=== PATIENT | female | born 1985 | race Caucasian/White ===

== ENCOUNTER 2016-04-01 08:03 | Emergency (ER) | payer OTHER ==
[~2016-04-01] VITALS: Ht 162.6 cm; Wt 65.8 kg
[~2016-04-01 08:03] MED LIST: CLIN300C86 PO; HYDR-2666 PO; PROAIR HFA8.5 GM INH
[2016-04-01 08:11] VITALS: BP 112/67
--- NOTE | 2016-04-01 08:20 | PHYS DOC ---
Past Medical History Past Medical History: No Pertinent History, Asthma Past Surgical History: No Surgical History Alcohol Use: None Drug Use: None Adult General Chief Complaint Chief Complaint: FLU SYMPTOM HPI HPI Patient is a 30 year old female who presents with cough, fever, body aches. Patient reports symptoms began yesterday morning with chest congestion and cough. She has had fever at home up to 102F. Additional symptoms include general body aches, sore throat, b/l ear pain. She has taken Tylenol at home with insufficient relief. No other acute complaints. Of note, patient reports multiple other members of household have been ill. Review of Systems Review of Systems Constitutional: Fever Eyes: Denies change in visual acuity or eye pain HENT: Sore throat Respiratory: Cough. Denies shortness of breath Cardiovascular: Denies chest pain GI: Denies abdominal pain, nausea, vomiting, bloody stools or diarrhea : Denies dysuria or hematuria Musculoskeletal: General body aches Integument: Denies rash or skin lesions Neurologic: Denies headache, focal weakness or sensory changes Current Medications Current Medications Current Medications Medications (Trade) Dose Ordered Sig/Kenneth Start Time Stop Time Status Last Admin Dose Admin Naproxen (Naprosyn) 500 mg STK-MED ONCE 04/01/16 08:21 04/01/16 08:22 DC Oseltamivir Phosphate (Tamiflu) 75 mg 1X ONCE 04/01/16 09:00 04/01/16 09:01 DC 04/01/16 09:12 75 MG Allergies Allergies Allergies Coded Allergies Type Severity Reaction Last Updated Verified No Known Drug Allergies 01/19/16 No Physical Exam Physical Exam Constitutional: Well developed, well nourished, no acute distress, non-toxic appearance HENT: Normocephalic, atraumatic, bilateral external ears normal. Oropharynx with minimal erythema, no exudate. B/l ear canals and TMs clear Eyes: EOMI, conjunctiva normal, no discharge Neck: Normal range of motion, no stridor Cardiovascular: Heart rate normal, regular rhythm, no murmur Lungs & Thorax: Bilateral breath sounds clear to auscultation Abdomen: Bowel sounds normal, soft, non-distended, no TTP Skin: Warm, dry, no erythema, no rash Extremities: No obvious deformity, no edema Neurologic: Alert and oriented X 3, no gross deficits noted Current Patient Data Vital Signs Vital Signs Date Time Temp Pulse Resp B/P Pulse Ox O2 Delivery O2 Flow Rate FiO2 04/01/16 08:11 99.3 54 18 98 Room Air 99.3 Lab Values Laboratory Tests Test 04/01/16 08:10 Influenza Type A Antigen Positive (NEGATIVE) Influenza Type B Antigen Negative (NEGATIVE) EKG EKG [] Radiology/Procedures Radiology/Procedures CXR: IMPRESSION: No acute or focal process. No significant change Course & Med Decision Making Course & Med Decision Making Pertinent Labs and Imaging studies reviewed. (See chart for details) Patient is 30 year old female who presents with cough, fever, body aches. Suspect viral respiratory infection. Will check CXR, rapid influenza screen. Naproxen ordered for relief of symptoms. CXR results as above. Positive for influenza B. Dose of tamiflu ordered. Discussed results with patient. Will plan discharge with rx for naproxen and tamiflu. Given instructions for follow up, return precautions. Dragon Disclaimer Dragon Disclaimer This electronic medical record was generated, in whole or in part, using a voice recognition dictation system. Departure Departure Impression: Primary Impression: Influenza B Disposition: 01 HOME, SELF-CARE Condition: STABLE Referrals: ROMMEL ROBLES MD (PCP) Patient Instructions: Influenza, Adult Additional Instructions: Thank you for allowing us to provide care today in the Emergency Department. Take the provided medication as directed. Be sure to drink plenty of fluids while you are sick. Schedule a follow up appointment with your primary care doctor. Return promptly to the Emergency Department if you develop any new or concerning symptoms. Scripts Oseltamivir Phosphate (Tamiflu)75 Mg Capsule1 Cap PO BID #10 CAP Prov:MARIAMA MOULTON MD 04/01/16 Naproxen 375 Mg [id number] Mg PO BID PRN fever, body aches #20 Prov:MARIAMA MOULTON MD 04/01/16 MARIAMA MOULTON MD Apr 01, 2016 08:20
[2016-04-01] MEDS ORDERED: NAPROXEN 500 MG TABLET ONE (08:21)
[2016-04-01] MEDS ORDERED: NAPROXEN 500 MG TABLET PO ONE (08:30)
[2016-04-01 08:52] LABS: OBC FLU VALID
--- NOTE | 2016-04-01 08:59 | RAD ---
Indication cough and fever. PA and lateral views of the chest were obtained and are compared to an examination 03/25/2006. The heart and pulmonary vessels appear normal. The lungs are clear. There is no pleural fluid or pneumothorax. There has not been a significant change in the appearance of the chest compared to the previous exam. IMPRESSION: No acute or focal process. No significant change
[2016-04-01] MEDS ORDERED: OSELTAMIVIR 75 MG CAPSULE PO ONE (09:00)
[2016-04-01] MEDS ORDERED: NAPR375T3 PO (09:23)
[2016-04-01] MEDS ORDERED: OSEL75CA PO (09:23)
== END 2016-04-01 09:43 | disposition home or self-care (01) ==
LOC: ER 08:03
DX: J10.1 Influenza due to other identified influenza virus with other respiratory manifestations (principal); J45.909 Unspecified asthma, uncomplicated
CPT/HCPCS: 71020; 87804; 99285-25

== ENCOUNTER → 2017-12-03 | Outpatient (CLI) | payer OTHER ==
[~2017-12-03] MED LIST changes: +CLIN300C8 PO; -CLIN300C86 PO; -HYDR-2666 PO; +HYDR-2758 PO; +NAPR-695 PO; +OSEL75CA PO
--- NOTE | 2017-12-03 08:31 | RAD ---
Obstetrical ultrasound, 12/03/2017: HISTORY: , unsure of dates Transabdominal scans were obtained. The uterus contains a single gestational sac. The gestational sac contains a pole demonstrating a crown-rump length of 8-9 mm. This suggests a gestational age of 6 weeks and 6 days yielding a sonographic EDC of 07/23/2017. cardiac activity is evident with a heart rate of 141 bpm. There is no evidence of subchorionic hemorrhage. The ovaries were not clearly defined. A 2.4 cm hypoechoic structure in the left adnexa is likely an ovarian cyst. The adnexal regions are otherwise unremarkable. No free fluid is evident in the pelvis. IMPRESSION: 1. Single viable intrauterine fetus of approximately 7 weeks gestational age. 2. Small left ovarian cyst. Electronically signed by: Daniel Hsieh MD (12/03/2017 8:28 AM) [facility]
== END | disposition home or self-care (01) ==
LOC: US 07:36
PROVIDERS: ATTEND Family Medicine
DX: O34.81 Maternal care for other abnormalities of pelvic organs, first trimester (principal); Z3A.01 Less than 8 weeks gestation of pregnancy
CPT/HCPCS: 76801

== ENCOUNTER → 2018-01-22 | Outpatient (CLI) | payer OTHER ==
[~2018-01-22] MED LIST changes: -HYDR-2758 PO; +HYDR-2761 PO
--- NOTE | 2018-01-22 17:02 | RAD ---
Examination: Obstetric ultrasound less than 14 weeks HISTORY: History of vaginal bleeding Comparison: 12/03/2017 FINDINGS: The cervix measures 5.1 cm in length. Single living intrauterine identified with heart rate of 153 bpm. LMP is 10/16/2017. Clinical age 14 weeks and 0 days with estimated date of delivery 07/23/2018. Ultrasound age is 14 weeks and 4 days with date of delivery by ultrasound 07/19/2018. Cephalic index 74.3 Head circumference to abdominal circumference ratio 1.2. Femur length to biparietal diameter ratio 57.9. Femur length to head circumference 15.1 Femur length to abdominal circumference 19.2 Biparietal diameter measures 2.6 cm corresponding to 14 weeks and 5 days. Head circumference measures 10.1 cm corresponding to 14 weeks and 5 days. Abdominal circumference measures 8 cm corresponding to 14 weeks and 3 days. Femur length measures 1.5 cm corresponding to 14 weeks and 4 days. IMPRESSION: Single living intrauterine with heart rate of 153 bpm. Estimated gestational age 14 weeks and 4 days. Electronically signed by: Wilmar Gomes MD (01/22/2018 4:58 PM) [place] [id number]
== END | disposition home or self-care (01) ==
LOC: US 15:40
PROVIDERS: ATTEND Family Medicine
DX: Z34.81 Encounter for supervision of other normal pregnancy, first trimester (principal); Z3A.14 14 weeks gestation of pregnancy
CPT/HCPCS: 76801

== ENCOUNTER → 2018-02-27 | Outpatient (CLI) | payer MEDICAID ==
[~2018-02-27] MED LIST changes: +ALBU2.5V8 INH; -PROAIR HFA8.5 GM INH
--- NOTE | 2018-02-27 17:24 | RAD ---
Obstetrical ultrasound, 02/27/2018: HISTORY: Routine screening There is a single intrauterine fetus in a cephalic orientation. The biparietal diameter measures 4.7 cm compatible with a gestational age of 20 weeks and 1 day. This correlates well with the other measurements yielding a sonographic EDC of 07/16/2018. This correlates well with the EDC of 07/23/2018 established on the previous ultrasound exam of 12/03/2017. Normal activity and heart motion were seen. A four-chamber heart is evident demonstrating a heart rate of 133 bpm. Fluid is identified in the bladder and stomach. The visualized portions of the spine and kidneys are unremarkable. A three-vessel umbilical cord is identified with a normal cord insertion site. A normal amount of amniotic fluid is evident. The placenta lies anteriorly extending into the fundal region. There is no evidence of placenta previa. The cervical length was estimated at 5.5 cm. IMPRESSION: Single viable intrauterine fetus of approximately 20 weeks gestational age as described above. Electronically signed by: Daniel Hsieh MD (02/27/2018 5:20 PM) [facility]
== END | disposition home or self-care (01) ==
LOC: US 15:37
PROVIDERS: ATTEND Family Medicine
DX: Z34.92 Encounter for supervision of normal pregnancy, unspecified, second trimester (principal); Z3A.20 20 weeks gestation of pregnancy
CPT/HCPCS: 76805

== ENCOUNTER 2018-07-15 17:59 | Inpatient (IN) | payer OTHER ==
[~2018-07-15] VITALS: Ht 160 cm; Wt 72.6 kg
[2018-07-15] MEDS ORDERED: LIDOCAINE 1% PF 30 ML VIAL. INJ PRN (18:15)
[2018-07-15] MEDS ORDERED: DINOPROSTONE 10 MG SUPP.VAG VG ONE (18:15)
[2018-07-15] MEDS ORDERED: OXYTOCIN 30 UNIT/500 ML PREMIX 500 ML IV PRN ×3 (18:15)
[2018-07-15] MEDS ORDERED: TERBUTALINE 1 MG/ML VIAL. SQ PRN (18:15)
[2018-07-15] MEDS ORDERED: 0.9 % SODIUM CHLORIDE 10 ML DISP.SYRIN. IV PRN (18:15)
[2018-07-15] MEDS ORDERED: IBUPROFEN 400 MG TABLET. PO PRN (18:15)
[2018-07-15] MEDS: IV RINGERS,LACTATED 1000ML 1,000 ML IV SCH (18:39)
[2018-07-15 18:41] VITALS: BP 110/68
[2018-07-15 18:53] LABS: BASO # 0.1 x10^3/uL (0.0-0.2); BASO % 1 % (0-3); EOS # 0.3 x10^3/uL (0.0-0.7); EOS % 2 % (0-3); HEMATOCRIT 33.5 % (36.0-47.0); HEMOGLOBIN 11.5 g/dL (12.0-15.5); LYMPH # 2.6 x10^3/uL (1.0-4.8); LYMPH % 19 % (24-48); MEAN CORPUSCULAR HEMOGLOBIN 32 pg (25-35); MEAN CORPUSCULAR HGB CONC 34 g/dL (31-37); MEAN CORPUSCULAR VOLUME 92 fL (79-100); MONO # 0.7 x10^3/uL (0.0-1.1); MONO % 5 % (0-9); NEUT # 10.1 x10^3uL (1.8-7.7); NEUT % 73 % (31-73); PLATELET COUNT 279 x10^3/uL (140-400); RED BLOOD COUNT 3.65 x10^6/uL (3.50-5.40); RED CELL DISTRIBUTION WIDTH 13.6 % (11.5-14.5); WHITE BLOOD COUNT 13.8 x10^3/uL (4.0-11.0)
[2018-07-16] MEDS: IV RINGERS,LACTATED 1000ML 1,000 ML IV SCH (06:47)
--- NOTE | 2018-07-16 08:11 | PDOC1 ---
OB - History Hx of Present Care: Good Care Ultrasounds: Normal mid trimester US Obstetrical Complications: Other (Borderline gestational diabetes) Medical Complications: None Past Family/Social History * Past Medical, Surgical, Family and Obstetric Histories reviewed from chart. Blood Type: A+ Rubella: Immune RPR/VDRL: Negative GBS Status: Negative HBsAG: Negative OB - Chief Complaint & HPI Date of Admission: Date of Admission: Jul 15, 2018 at 17:59 Chief Complaint/History : 6 Para: 2 EDC: Jul 23, 2018 Reason for admission: induction of labor Indication for induction: other (Elective) Admission Nurse Assessment Rev: No OB - Admission Exam Physical Exam Vitals: VS - Last 72 Hours, by Label Date Time Temp Pulse Resp B/P (MAP) Pulse Ox O2 Delivery O2 Flow Rate FiO2 07/15/18 18:41 98.3 91 18 110/68 (82) Room Air 98.3 HEENT: Normal, Nasal Mucosa Normal, Oropharynx Normal, Moist Membranes, Fontanelles Normal Heart: Regular Rate Lungs: Clear, Equal Abdomen: Gravid Extremities: Normal Pulses, No tenderness or swelling Reflexes: Normal Cervical Dilatation: 3cm Effacement: 75% Station: -3 Membranes: Intact Amniotic Fluid: Other Heart Rate: Normal Accelerations: Accelerations Present Decelerations: No decelerations Short Term Variability: Present Station Attendant Variability: Moderate Contractions on Admission: None A/P Pt is a 32yo at 39wga admitted for IOL 1)IOL- s/p Cervadil last night, starting pitocin this morning 2)Borderline gestational diabetes- BS were well controlled with diet 3)GBS negative ROMMEL ROBLES MD Jul 16, 2018 08:11
[2018-07-16] MEDS ORDERED: BUTORPHANOL 2 MG/ML VIAL. IV PRN (10:00)
[2018-07-16] MEDS ORDERED: fentaNYL PF VIAL 100 MCG/2 ML VIAL IV PRN (10:00)
[2018-07-16] MEDS ORDERED: fentaNYL PF VIAL 100 MCG/2 ML VIAL ONE (10:06)
--- NOTE | 2018-07-16 10:44 | PDOC ---
VAGINAL DELIVERY DATE DATE: 07/16/18 TIME: 1018 : 6 Para: 3 EDC: Jul 23, 2018 EGA: 39 VAGINAL DELIVERY: VTX PLACENTA: Spontaneous 8 and 9 SEX: Female WEIGHT Weight 6 pounds 14oz or 3110g Nuchal Cord: No Amniotic Fluid: Clear PAIN: Local EPISIOTOMY: No EXTENSION: No EBL 150cc COMPLICATIONS None CONDITION Stable FAMILY CONSULTANT Dr. Robles Signs of Intrauterine Infectio: None Shoulder Dystocia: No DIAGNOSIS Pt is a 32yo [id number] s/p induced vaginal delivery at 39wga 1)Induced vaginal delivery 2)Borderline gestational diabetes- BS were well controlled with diet 3)GBS negative 4)VFI 5) ROMMEL ROBLES MD Jul 16, 2018 10:44
[2018-07-16] MEDS ORDERED: SIMETHICONE 80 MG TAB.CHEW PO PRN (10:45)
[2018-07-16] MEDS ORDERED: HYDROCORTISONE 1% TOPICAL OINTMENT 30GM TUBE. TP PRN (10:45)
[2018-07-16] MEDS ORDERED: BENZOCAINE 20% TOPICAL AEROSOL SPRAY 57GM CAN. TP PRN (10:45)
[2018-07-16] MEDS ORDERED: OXYTOCIN 30 UNIT/500 ML PREMIX 500 ML IV PRN (10:45)
[2018-07-16] MEDS ORDERED: MAG HYDROX/ALUMINUM HYD/SIMETH 30 ML ORAL.SUSP PO PRN (10:45)
[2018-07-16] MEDS ORDERED: ACETAMINOPHEN 325 MG TABLET. PO PRN (10:45)
[2018-07-16] MEDS ORDERED: 0.9 % SODIUM CHLORIDE 10 ML DISP.SYRIN. IV PRN (10:45)
[2018-07-16] MEDS ORDERED: diphenhydrAMINE HCL 25 MG CAPSULE PO PRN (10:45)
[2018-07-16] MEDS ORDERED: MAGNESIUM HYDROXIDE 2,400 MG/30 ML ORAL.SUSP. PO PRN (10:45)
[2018-07-16] MEDS ORDERED: PHENYLEPH/MINERAL OIL/PETROLAT RECTAL OINTMENT 57GM TUBE. RC PRN (10:45)
[2018-07-16] MEDS: IBUPROFEN 400 MG TABLET. PO SCH ×2 (12:41→22:09)
[2018-07-16 13:30] VITALS: BP 110/67
[2018-07-16 14:30] VITALS: BP 102/67
[2018-07-16 20:32] VITALS: BP 100/47
[2018-07-17 05:10] VITALS: BP 97/60
--- NOTE | 2018-07-17 08:35 | PDOC ---
OB Progress Note Date of Service 07/17/18 Time of Evaluation 0815 Date: 07/16/18 Time: 1018 Notes Pt doing well. Having some pain in low back and lower abdomen. Bleeding is less than a period. is going okay OB VITAL SIGNS: Temperature (97.7F), Blood Pressure (97/60), Pulse (64) Lab Laboratory Tests Test 07/15/18 18:35 White Blood Count 13.8 x10^3/uL (4.0-11.0) Red Blood Count 3.65 x10^6/uL (3.50-5.40) Hemoglobin 11.5 g/dL (12.0-15.5) Hematocrit 33.5 % (36.0-47.0) Mean Corpuscular Volume 92 fL (79-100) Mean Corpuscular Hemoglobin 32 pg (25-35) Mean Corpuscular Hemoglobin Concent 34 g/dL (31-37) Red Cell Distribution Width 13.6 % (11.5-14.5) Platelet Count 279 x10^3/uL (140-400) Neutrophils (%) (Auto) 73 % (31-73) Lymphocytes (%) (Auto) 19 % (24-48) Monocytes (%) (Auto) 5 % (0-9) Eosinophils (%) (Auto) 2 % (0-3) Basophils (%) (Auto) 1 % (0-3) Neutrophils # (Auto) 10.1 x10^3uL (1.8-7.7) Lymphocytes # (Auto) 2.6 x10^3/uL (1.0-4.8) Monocytes # (Auto) 0.7 x10^3/uL (0.0-1.1) Eosinophils # (Auto) 0.3 x10^3/uL (0.0-0.7) Basophils # (Auto) 0.1 x10^3/uL (0.0-0.2) Treponema pallidum Antibody Nonreactive (Nonreactive) Medications Current Medications Sodium Chloride (Normal Saline Flush) 3 ml QSHIFT PRN IV AFTER MEDS AND BLOOD DRAWS; Start 07/15/18 at 18:15; Stop 07/16/18 at 14:25; Status DC Ringer's Solution 1,000 ml @ 125 mls/hr Q8H IV Last administered on 07/16/18at 06:47; Start 07/15/18 at 18:09; Stop 07/16/18 at 14:25; Status DC Terbutaline Sulfate (Brethine) 0.25 mg 1X PRN PRN SQ SEE COMMENTS; Start 07/15/18 at 18:15; Stop 07/16/18 at 14:25; Status DC Lidocaine HCl (Xylocaine 1% Pf 30ml Vial) 30 ml 1X PRN PRN INJ SEE COMMENTS; Start 07/15/18 at 18:15; Stop 07/16/18 at 14:25; Status DC Oxytocin/Sodium Chloride 500 ml @ 0 mls/hr CONT PRN IV SEE I/O RECORD Last administered on 07/16/18at 06:48; Start 07/15/18 at 18:15; Stop 07/16/18 at 14:25; Status DC Oxytocin/Sodium Chloride 500 ml @ 0 mls/hr CONT PRN IV SEE I/O RECORD; Start 07/15/18 at 18:15; Stop 07/16/18 at 14:25; Status DC Oxytocin/Sodium Chloride 500 ml @ 0 mls/hr CONT PRN PRN IV Post delivery bleeding; Start 07/15/18 at 18:15; Stop 07/16/18 at 14:25; Status DC Ibuprofen (Motrin) 800 mg PRN Q6HRS PRN PO PAIN MILD/INFLAMMATION; Start 07/15/18 at 18:15; Stop 07/16/18 at 10:50; Status DC Dinoprostone (Cervidil) 10 mg 1X ONCE VG Last administered on 07/15/18at 18:39; Start 07/15/18 at 18:15; Stop 07/16/18 at 14:25; Status DC Fentanyl Citrate (Fentanyl 2ml Vial) 100 mcg PRN Q2HRS PRN IV SEVERE PAIN; Start 07/16/18 at 10:00; Stop 07/16/18 at 14:25; Status DC Butorphanol Tartrate (Stadol) 2 mg PRN Q2HR PRN IV MODERATE PAIN Last administered on 07/16/18at 09:45; Start 07/16/18 at 10:00; Stop 07/16/18 at 14:25; Status DC Sodium Chloride (Normal Saline Flush) 10 ml QSHIFT PRN IV AFTER MEDS AND BLOOD DRAWS; Start 07/16/18 at 10:45; Stop 07/16/18 at 14:25; Status DC Oxytocin/Sodium Chloride 500 ml @ 62.5 mls/hr CONT PRN IV SEE I/O RECORD; Start 07/16/18 at 10:45; Stop 07/16/18 at 14:25; Status DC Acetaminophen (Tylenol) 650 mg PRN Q6HRS PRN PO MILD PAIN / TEMP; Start 07/16/18 at 10:45 Ibuprofen (Motrin) 800 mg Q8HRS PO Last administered on 07/16/18at 22:09; Start 07/16/18 at 14:00 Docusate Sodium (Colace) 100 mg PRN BID PRN PO CONSTIPATION 1ST CHOICE; Start 07/16/18 at 10:45 Magnesium Hydroxide (Milk Of Magnesia) 2,400 mg PRN DAILY PRN PO CONSTIPATION 2ND CHOICE; Start 07/16/18 at 10:45 Al Hydroxide/Mg Hydroxide (Mylanta Plus Xs) 30 ml PRN Q4HRS PRN PO HEARTBURN / GAS; Start 07/16/18 at 10:45 Simethicone (Gas-X) 80 mg PRN AFTMEALHC PRN PO GAS / BLOATING; Start 07/16/18 at 10:45 Diphenhydramine HCl (Benadryl) 25 mg PRN Q6HRS PRN PO ITCHING; Start 07/16/18 at 10:45 Benzocaine (Americaine) 1 spray PRN QID PRN TP TOPICAL PAIN Last administered on 07/16/18at 12:41; Start 07/16/18 at 10:45 Phenyleph/Shark Oil/Min Oil/Petrol (Preparation H) 1 grabiel PRN QID PRN RC RECTAL PAIN; Start 07/16/18 at 10:45 Hydrocortisone (Cortaid) 1 grabiel PRN QID PRN TP PERINEAL PAIN; Start 07/16/18 at 10:45 Fentanyl Citrate (Fentanyl 2ml Vial) 100 mcg STK-MED ONCE .ROUTE ; Start 07/16/18 at 10:06; Stop 07/16/18 at 17:58; Status DC Active Scripts Active Tamiflu (Oseltamivir Phosphate) 75 Mg Capsule 1 Cap PO BID Naproxen 375 Mg Tablet 375 Mg PO BID PRN Clindamycin Hcl 300 Mg Capsule 1 Cap PO TID 7 Days Hydrocodone-Apap 5-325 (Hydrocodone Bit/Acetaminophen) 1 Each Tablet 1 Tab PO PRN Q6HRS PRN Reported Proair Hfa Inhaler (Albuterol Sulfate) 8.5 Gm Hfa.aer.ad 1 Puff INH PRN Q6HRS PRN Exam GEN: NAD, AOx3 HEENT: MMM, EOMI, no scleral icterus/injection Cardiac: RRR, no M/R/G Lungs: CTAB Ext: no erythema/edema LE bilaterally Neuro: CN2-12 GI Assessment Pt is a 32yo [id number] s/p induced vaginal delivery at 39wga 1)Induced vaginal delivery 2)Borderline gestational diabetes- BS were well controlled with diet 3)GBS negative 4)VFI 5) ROMMEL ROBLES MD Jul 17, 2018 08:35
[2018-07-17] MEDS: DOCUSATE SODIUM 100 MG CAPSULE. PO PRN (08:36)
[2018-07-17] MEDS: IBUPROFEN 400 MG TABLET. PO SCH ×2 (08:36→17:32)
[2018-07-17 08:37] VITALS: BP 103/71
[2018-07-17 14:30] VITALS: BP 105/65
[2018-07-17 18:55] VITALS: BP 109/72
[2018-07-18 02:00] VITALS: BP 111/68
[2018-07-18] MEDS: IBUPROFEN 400 MG TABLET. PO SCH (05:05)
[2018-07-18] MEDS: DOCUSATE SODIUM 100 MG CAPSULE. PO PRN (05:06)
[2018-07-18 05:36] VITALS: BP 102/66
--- NOTE | 2018-07-18 07:30 | PDOC3 ---
ROMMEL ROBLES MD Jul 18, 2018 07:30
[2018-07-18 11:10] VITALS: BP 110/68
== END 2018-07-18 13:00 | disposition home or self-care (01) | DRG 807 ==
LOC: 3 SO LND 17:59 → 3 NORTH 07-16 13:45
PROVIDERS: ADMIT Family Medicine; ATTEND Family Medicine
PROC: 10E0XZZ Delivery of Products of Conception, External Approach (ICD-10-PCS; principal; 2018-07-15)
PROC: 10907ZC Drainage of Amniotic Fluid, Therapeutic from Products of Conception, Via Natural or Artificial Opening (ICD-10-PCS; 2018-07-15)
DX: O24.420 Gestational diabetes mellitus in childbirth, diet controlled (principal); Z37.0 Single live birth; Z3A.39 39 weeks gestation of pregnancy
CPT/HCPCS: 36415; 85018; 85025; 86592; 86850; 86900; 86901; J2590; J7120